=== PATIENT | female | born 1995 | race Caucasian/White ===

== ENCOUNTER 2017-05-30 10:21 | Emergency (ER) | payer OTHER ==
[2017-05-30 11:08] LABS: BILIRUBIN,URINE NEGATIVE (NEGATIVE); PH,URINE 6.5 PH (5.0-7.5)
[2017-05-30 11:09] LABS: UA w/ MICROSCOPIC CHARGE YES
[2017-05-30 11:10] LABS: HCG UR QUAL NEGATIVE
[2017-05-30 11:27] LABS: UR CULTURE IF IND INDICATED
--- NOTE | 2017-05-30 12:16 | ED Physician Documentation ---
History of Present Illness - Stated complaint Stated Complaint: ABD PX/NAUSEA - Chief complaint Chief Complaint: Abd Pain - Additonal information Additional information: hx from pt 22 AD pt anatomic female f->m trangender no reassignment surgery to ER with approx 2 days of lower abd pain/cramps nausea and diarrhea no urinary sx no menses for 2 years possibly 2/2 hormone tx no fever no prior surgery Review of Systems Constitutional: denies: Fever, Chills Cardiac: denies: Chest pain / pressure Respiratory: denies: Dyspnea GI: reports: Abdominal Pain, Nausea, Diarrhea : denies: Dysuria, Now EGA Endocrine: denies: Easy bruising / bleeding Immunocompromised: denies: Immunocompromised PD PAST MEDICAL HISTORY - Past Medical History Psych: Depression, Anxiety, ADD/ADHD - Past Surgical History Past Surgical History: No - Present Medications Home Medications: Ambulatory Orders Medication Instructions Recorded Confirmed Testosterone [Axiron] 0.4 ml SQ DAILY 10/24/15 10/24/15 Dextroamphetamine/Amphetamine 20 mg PO DAILY 05/30/17 05/30/17 [Adderall 20 mg Tablet] Ondansetron Odt [Zofran] 4 mg TL Q6H PRN #10 tablet 05/30/17 Sertraline HCl [Zoloft] 200 mg PO DAILY 05/30/17 05/30/17 - Allergies Allergies/Adverse Reactions: Allergies Allergy/AdvReac Type Severity Reaction Status Date / Time No Known Drug Allergies Allergy Verified 10/24/15 17:44 - Social History Does the pt smoke?: Yes Smoking Status: Current every day smoker Does the pt drink ETOH?: No Does the pt have substance abuse?: No - Immunizations Immunizations are current?: Yes PD ED PE NORMAL - Vitals Vital signs reviewed: Yes - Neck Neck: Supple, no meningeal sign - Cardiac Cardiac: RRR - Respiratory Respiratory: No respiratory distress, Clear bilaterally - Abdomen Abdomen: Soft, Other (TTP RLQ but without rebound or guarding) Results - Vitals Vitals: Vital Signs - 24 hr 05/30/17 05/30/17 10:27 13:50 Temperature 36.7 C Heart Rate 86 89 Respiratory 16 12 Rate Blood Pressure 112/68 113/74 O2 Saturation 100 99 Oxygen O2 Source Room air - Labs Labs: Laboratory Tests 05/30/17 05/30/17 05/30/17 10:55 10:55 12:25 WBC 7.1 RBC 5.25 Hgb 16.2 H Hct 46.3 MCV 88.2 MCH 30.8 MCHC 34.9 RDW 13.6 Plt Count 227 MPV 7.5 L Neut # 4.2 Lymph # 2.0 Hamblen # 0.7 Eos # 0.1 Baso # 0.0 Absolute Nucleated RBC 0.00 Nucleated RBCs 0.0 Sodium Potassium Chloride Carbon Dioxide Anion Gap BUN Creatinine Estimated GFR (MDRD) Glucose Calcium Total Bilirubin AST ALT Alkaline Phosphatase Total Protein Albumin Globulin Albumin/Globulin Ratio Lipase Urine Color YELLOW Urine Clarity HAZY Urine pH 6.5 Ur Specific [place] 1.010 1.010 Urine Protein NEGATIVE Urine Glucose (UA) NEGATIVE Urine Ketones NEGATIVE Urine Occult Blood NEGATIVE Urine Nitrite NEGATIVE Urine Bilirubin NEGATIVE Urine Urobilinogen 0.2 (NORMAL) Ur Leukocyte Esterase TRACE H Urine RBC None Seen Urine WBC 6-10 H Ur Squamous Epith Cells RARE Squamous Urine Bacteria None Seen Ur Microscopic Review INDICATED Urine Culture Comments INDICATED Urine HCG, Qual NEGATIVE 05/30/17 12:25 WBC RBC Hgb Hct MCV MCH MCHC RDW Plt Count MPV Neut # Lymph # Hamblen # Eos # Baso # Absolute Nucleated RBC Nucleated RBCs Sodium 136 Potassium 3.6 Chloride 102 Carbon Dioxide 29 Anion Gap 5.0 L BUN 7 Creatinine 0.8 Estimated GFR (MDRD) 90 Glucose 92 Calcium 9.3 Total Bilirubin 0.8 AST 15 ALT 12 Alkaline Phosphatase 77 Total Protein 7.8 Albumin 4.9 Globulin 2.9 Albumin/Globulin Ratio 1.7 Lipase 26 Urine Color Urine Clarity Urine pH Ur Specific Newsoms Urine Protein Urine Glucose (UA) Urine Ketones Urine Occult Blood Urine Nitrite Urine Bilirubin Urine Urobilinogen Ur Leukocyte Esterase Urine RBC Urine WBC Ur Squamous Epith Cells Urine Bacteria Ur Microscopic Review Urine Culture Comments Urine HCG, Qual - Rads (name of study) abd sono Radiology: See rad report (neg RLQ sono) pelvic sono Radiology: See rad report (normal) PD MEDICAL DECISION MAKING - ED course ED course: nausea diarrhea and mid abd pain with RLQ TTP but no peritoneal signs urine few WBC but no bacteria, no blood to suggest stone, nl WBC low suspicion for appy would not expose to radiation of CT at this time with this exam will dc to fup next with PMD at [facility] tomorrow AM for repeat abd exam (or with me in ER if PMD cannot see) serial abd exams in ER unchanged from initial Departure - Departure Disposition: 01 Home, Self Care Clinical Impression: Abdominal pain Qualifiers: Abdominal location: right lower quadrant Qualified Code(s): R10.31 - Right lower quadrant pain Condition: Good Instructions: ED Abdominal Pain Appendx Poss [facility] (tomorrow for a repeat abdominal exam) Prescriptions: Ondansetron Odt [Zofran] 4 mg TL Q6H PRN #10 tablet PRN Reason: Nausea / Vomiting Comments: Your urine, blood work and ultrasound were all reassuring. Your appendix could not be seen on ultrasound but there was no adjacent inflammation or swollen lymph nods to suggest appendicitis. At this point my suspicion for appendicitis is low - these symptoms could just be a stomach virus too. I would not recommend the rrisk of CT scan or surgery based on your symptoms at this time. But appendicitis can be subtle in the early stages and the diagnosis can be missed So I recommend that you can go home todaywith tylenol for pain and zofran for the vomiting and diarrhea. Then you need to see your PMD at [place] tomorrow for a repeat abdominal exam - or just come back and see me in the ER tomorrow morning if you cannot be seen at [facility] If your pain gets much worse overnight, come back to the ER right away Forms: Activity restrictions
[2017-05-30 12:37] LABS: BASOPHILS % (AUTO) 0.5 %; EOSINOPHILS # (AUTO) 0.1 10^3/uL (0.0-0.7); HCT - HEMATOCRIT 46.3 % (37.0-47.0); HGB - HEMOGLOBIN 16.2 g/dL (12.0-16.0); MEAN CORPUSCULAR HEMOGLOBIN 30.8 pg (27.0-31.0); MEAN CORPUSCULAR HGB CONC 34.9 g/dL (32.0-36.0); MEAN CORPUSCULAR VOLUME 88.2 fL (81.0-99.0); MEAN PLATELET VOLUME 7.5 fL (7.9-10.8); MONOCYTES # (AUTO) 0.7 10^3/uL (0.0-1.0); MONOCYTES % (AUTO) 9.6 %; NEUTROPHILS # (AUTO) 4.2 10^3/uL (1.5-6.6); NEUTROPHILS % (AUTO) 59.9 %; RED BLOOD COUNT 5.25 10^6/uL (4.20-5.40); RED CELL DISTRIBUTION WIDTH 13.6 % (12.0-15.0); UNCORRECTED WHITE BLOOD COUNT 7.1 x10^3/uL; WHITE BLOOD COUNT 7.1 x10^3/uL (4.8-10.8)
[2017-05-30 12:49] LABS: ALBUMIN/GLOBULIN RATIO 1.7 (1.0-2.2); BILIRUBIN,TOTAL 0.8 mg/dL (0.2-1.0); CALCIUM 9.3 mg/dL (8.5-10.3); CREATININE 0.8 mg/dL (0.4-1.0); POTASSIUM 3.6 mmol/L (3.5-5.0); TOTAL PROTEIN 7.8 g/dL (6.7-8.2)
--- NOTE | 2017-05-30 13:47 | Ultrasound Report ---
RIGHT LOWER QUADRANT ULTRASOUND FOR EVALUATION OF THE APPENDIX: 05/30/2017 TECHNIQUE: Real-time scanning was performed with correspondence representative static images obtained. FINDINGS: The right lower quadrant was scanned in detail with graded compression scanning. All the bowel loops in the right lower quadrant were compressible without evidence of enlarged appendix. Exa mination is negative for appendicitis. A negative ultrasound does not exclude appendicitis. If ther e is still strong clinical concern in regard to appendicitis, additional studies such as an abdominal and pelvic CT exam could be obtained for further evaluation. No free fluid is detected in the right lower quadrant of the abdomen. No enlarged lymph nodes are se en. IMPRESSION: NEGATIVE EXAMINATION DISCUSSED ABOVE. JOB #: [id number] EXT JOB #:[id number]
--- NOTE | 2017-05-30 13:49 | Ultrasound Report ---
TRANSABDOMINAL PELVIC ULTRASOUND: 05/30/2017 TECHNIQUE: Real-time scanning was performed with direct customer service representative static images obtained. FINDINGS: Uterus measures 7.5 x 2.7 x 4.1 cm for a volume of 43.4 mL. Endometrial echo complex alvarez ures 5.5 mm. Uterus is normal in size and morphology. Right ovary measures 3.2 x 2.0 x 1.8 cm for a volume of 6 mL. Normal vascular flow is noted to the r ight ovary. Left ovary measures 1.8 x 1.6 x 2.2 cm for a volume of 3.3 mL. Normal vascular flow is seen to the l eft ovary. IMPRESSION: NORMAL EXAMINATION. JOB #: [id number] EXT JOB #:[id number]
[2017-05-30 13:50] VITALS: BP 113/74
== END 2017-05-30 14:37 | disposition home or self-care (01) ==
LOC: ED 10:21
DX: R10.31 Right lower quadrant pain (principal); F17.200 Nicotine dependence, unspecified, uncomplicated
CPT/HCPCS: 36415; 76705; 76856; 80053; 81001; 81003; 81025; 83690; 85025; 87086; 93975; 99283; 99284

== ENCOUNTER 2017-05-31 10:06 | Emergency (ER) | payer OTHER ==
[2017-05-31] MEDS ORDERED: KETOROLAC 60 MG/2 ML VIAL IVP STA (11:14)
[2017-05-31] MEDS ORDERED: SODIUM CHLORIDE 0.9% 1,000 ML IV ONE ×2 (11:14→13:37)
[2017-05-31] MEDS ORDERED: KETOROLAC 30 MG/ML VIAL ONE (11:18)
--- NOTE | 2017-05-31 11:18 | ED Physician Documentation ---
History of Present Illness - Stated complaint Stated Complaint: SIDE PX - Chief complaint Chief Complaint: Abd Pain - Additonal information Additional information: hx from pt 22 f (trans, female to male, no reconstructive surgery, HCG neg yesterday) seen yesterday for lower abd pain nausea diarrhea no travel no sick contacts no bad food had neg UA and HCG, nl CBC chem, neg pelvic sono, RLQ sono non diag for appendix pt had RLQ but not focal or peritoneal so recommended serial abd exams and pt returns today as requested and pain is a but worse - still lower, somewhat sharp and crampy denies vag bleed or dc - we discussed a pelvic exam but pt state had one recently including pap and cultures neg for infection Review of Systems Constitutional: denies: Fever, Chills Cardiac: denies: Chest pain / pressure Respiratory: denies: Dyspnea GI: reports: Abdominal Pain, Nausea, Diarrhea : denies: Dysuria, Discharge, Vaginal bleeding, Now EGA Endocrine: denies: Easy bruising / bleeding Immunocompromised: denies: Immunocompromised PD PAST MEDICAL HISTORY - Past Medical History Psych: Depression, Anxiety, ADD/ADHD - Past Surgical History Past Surgical History: No - Present Medications Home Medications: Ambulatory Orders Medication Instructions Recorded Confirmed Testosterone [Axiron] 0.4 ml SQ DAILY 10/24/15 10/24/15 Dextroamphetamine/Amphetamine 20 mg PO DAILY 05/30/17 05/30/17 [Adderall 20 mg Tablet] Ondansetron Odt [Zofran] 4 mg TL Q6H PRN #10 tablet 05/30/17 Sertraline HCl [Zoloft] 200 mg PO DAILY 05/30/17 05/30/17 - Allergies Allergies/Adverse Reactions: Allergies Allergy/AdvReac Type Severity Reaction Status Date / Time No Known Drug Allergies Allergy Verified 10/24/15 17:44 - Social History Does the pt smoke?: Yes Smoking Status: Current every day smoker Does the pt drink ETOH?: No Does the pt have substance abuse?: No - Immunizations Immunizations are current?: Yes PD ED PE NORMAL - Vitals Vital signs reviewed: Yes - Cardiac Cardiac: RRR - Respiratory Respiratory: No respiratory distress, Clear bilaterally - Abdomen Abdomen: Soft, Other (mod TTP across lower abd with some vol guarding but still no rebound ) - Female Female : Deferred (pt states recent pelvic incuding neg cultures) - Derm Derm: Normal color - Neuro Neuro: Alert and oriented X 3 Results - Vitals Vitals: Vital Signs - 24 hr 05/31/17 05/31/17 10:16 14:43 Temperature 37 C 36.9 C Heart Rate 93 89 Respiratory 16 16 Rate Blood Pressure 122/72 93/66 O2 Saturation 98 100 Oxygen O2 Source Room air - Rads (name of study) CT abd pelvis with PO and IV Radiology: See rad report (no acute process) PD MEDICAL DECISION MAKING - ED course ED course: neg CT neg sono urine blood work yesterday urine cx pending had P exam and cx at [facility] recently - neg cx per pt pt told nurse his testosterone dose was dec several m ago and he had similar but milder cramps and some spotting a month ago, so this may be due to med adustment and pt should fup [facility] Departure - Departure Disposition: 01 Home, Self Care Clinical Impression: Abdominal pain Qualifiers: Abdominal location: lower abdomen, unspecified Qualified Code(s): R10.30 - Lower abdominal pain, unspecified Condition: Good Instructions: ED Abdominal Pain Unkn Cause Follow-Up: [facility] [Provider Group] Comments: The CT scan showed your appendix very well and it was fine - as were your blood work and urine tests and ultrasound yesterday And you report having recently had a normal pelvic exam with cultures too. A urine culture is still pending and you will be called if it is positive and antibiotics are needed I am not sure what is causing the pain for sure Given the diarrhea it may be a viral GI infection Hopefully the symptoms will gradually improve on their own In the meantime recommend motrin and tylenol for pain and zofran which i prescribed yesterday Please follow up with [facility] if not better in a week. Return if worse Forms: Activity restrictions
[2017-05-31] MEDS ORDERED: IOPAMIDOL-300 50 ML VIAL PO ONE (13:08)
[2017-05-31] MEDS ORDERED: IOPAMIDOL-300 100 ML VIAL IVP ONE (13:08)
--- NOTE | 2017-05-31 13:50 | CT Preliminary Report ---
Exam: CT Abdomen/Pelvis W/ IMPRESSION: 1. Normal appendix. 2. Normal exam. No radiographic explanation for this young lady's symptoms. [facility] SITE ID: [id number]
--- NOTE | 2017-05-31 14:04 | CT Report ---
EXAM: CT ABDOMEN AND PELVIS EXAM DATE: 05/31/2017 01:03 PM. CLINICAL HISTORY: Lower abdominal pain. Evaluate for appendicitis. COMPARISONS: No prior CT scan. Pelvic ultrasound and limited ultrasound right lower quadrant earlier today. TECHNIQUE: Routine helical CT imaging was performed through the abdomen and pelvis. IV contrast: 100 cc Isovue-300. Enteric contrast: Yes. Reconstructions: Coronal and sagittal. In accordance with CT protocol optimization, one or more of the following dose reduction techniques w ere utilized for this exam: automated exposure control, adjustment of mA and/or KV based on patient s ize, or use of iterative reconstructive technique. FINDINGS: Lung Bases: Unremarkable. Liver: Normal. No masses. Gallbladder/Bile Ducts: Unremarkable. Spleen: Normal. Pancreas: Normal. Adrenal Glands: Normal. Kidneys: Normal. No masses or hydronephrosis. Peritoneal Cavity/Bowel: Normal. No free fluid, free air or adenopathy. No masses or acute inflammato ry process. Oral contrast extends to the distal ileum. Terminal ileum unremarkable. The appendix is w ell visualized and normal, coronal images 16 and 17, axial images 58-59. Pelvic Organs: Normal. Trace amount of free cul-de-sac fluid. The bladder and visualized pelvic organ s are within normal limits. Vasculature: No aneurysms or other significant abnormality. Bones: No significant abnormality. Other: None. IMPRESSION: 1. Normal appendix. 2. Normal exam. No radiographic explanation for this young lady's symptoms. [facility] Referring Provider Line: [phone] SITE ID: [id number]
[2017-05-31 14:44] VITALS: BP 93/66
== END 2017-05-31 14:56 | disposition home or self-care (01) ==
LOC: ED 10:06
DX: R10.31 Right lower quadrant pain (principal); F17.200 Nicotine dependence, unspecified, uncomplicated
CPT/HCPCS: 74177; 96374; 99283; 99284; Q9967